=== PATIENT | female | born 1980 | race Caucasian/White ===

== ENCOUNTER 2018-09-19 11:35 | Emergency (ER) | payer MEDICAID, OTHER ==
[~2018-09-19] VITALS: Ht 160 cm; Wt 128.0 kg
[2018-09-19 11:42] VITALS: BP 129/84
--- NOTE | 2018-09-19 11:53 | NUR ---
PT HERE FOR LEFT EAR PAIN.
[2018-09-19] MEDS ORDERED: ACETAMINOPHEN 500 MG TABLET ONE (12:15)
[2018-09-19] MEDS ORDERED: CEFTRIAXONE 250 MG ONE (12:27)
[2018-09-19] MEDS ORDERED: AZITHROMYCIN 250 MG TABLET ONE (12:27)
[2018-09-19] MEDS ORDERED: ACETAMINOPHEN 500 MG TABLET PO ONE (12:30)
[2018-09-19] MEDS ORDERED: CEFTRIAXONE 250 MG IM ONE (12:30)
[2018-09-19] MEDS ORDERED: AZITHROMYCIN 500 MG TABLET PO ONE (12:30)
[2018-09-19 12:32] LABS: CLUE CELLS NONE SEEN (NONE SEEN); WET PREP WBCS FEW (FEW)
--- NOTE | 2018-09-19 12:42 | NUR ---
ua collected at sent. pt medicated per aug.
[2018-09-19 12:53] LABS: MICROSCOPIC AUTO
[2018-09-19 12:55] LABS: CULTURE INDICATED? YES
--- NOTE | 2018-09-19 13:09 | NUR ---
Patient given discharge instructions and they have confirmed that they understand the instructions. Patient ambulatory with steady gait.
== END 2018-09-19 13:10 | disposition home or self-care (01) ==
LOC: ED 12:55
DX: N93.9 Abnormal uterine and vaginal bleeding, unspecified (principal); H66.92 Otitis media, unspecified, left ear
CPT/HCPCS: 81001; 87086; 87210; 87491; 87591; 87808; 96372; 99283; J0696